=== PATIENT | male | born 1990 | race Caucasian/White ===

== ENCOUNTER 2020-02-27 13:17 | Outpatient (CLI) | payer OTHER, SELFPAY ==
--- NOTE | ~2020-02-27 | XR_ITS ---
XR thoracic spine 3V 02/27/2020 13:38 Indication: Thoracic spine pain Procedure: 4 views of the thoracic spine Comparison: 08/04/2010 Findings: Vertebral body and disc heights are preserved. Pedicles intact. No paraspinal soft tissue a bnormality. Surrounding osseous structures within normal limits. Visualized lung parenchyma is normal . No fracture or traumatic malalignment. There is mild dextrocurvature of the thoracic spine. Impression: 1: No acute abnormality of the thoracic spine. Reviewed, dictated and finalized at location A. Impression: 1: No acute abnormality of the thoracic spine.
== END 2020-02-27 13:18 | disposition home or self-care (01) ==
PROVIDERS: PCP Family Medicine; Visit Provider Family Medicine
DX: M54.6 Pain in thoracic spine (principal)
CPT/HCPCS: 72072

== ENCOUNTER 2020-11-20 12:31 | Emergency (ER) | payer OTHER, SELFPAY ==
--- NOTE | ~2020-11-20 | CT_ITS ---
EXAMINATION: CT abdomen pelvis w con INDICATION: Generalized abdominal pain TECHNIQUE: Computed tomographic images of the abdomen and pelvis were obtained after the administrati on of 100 cc of Omnipaque 350 intravenous contrast. The dose-length product (DLP) was 300.76 mGy-cm. Automated exposure control and iterative reconstruction technique were employed. COMPARISON: 06/27/2018 FINDINGS: The lung bases are clear. The heart size is normal. The liver, spleen, pancreas, gallbladde r, and adrenal glands are normal. The kidneys are unremarkable. A circumaortic left renal vein is not ed. No pathologically enlarged abdominal or pelvic lymph nodes are identified. There is no free intra peritoneal gas or evidence of bowel obstruction. The appendix is normal. IMPRESSION: 1. No CT correlate for the patient's symptoms. Reviewed, dictated and finalized at location A. [employer]
[2020-11-20 12:35] VITALS: BP 119/72; PULSE 87; RESP 20; TEMP 36.3; O2SAT 96
[2020-11-20 12:56] LABS: Add Urine Microscopic? YES; Appearance Urine Clear (Clear); Bacteria Urine Trace /hpf; Bilirubin Urine Negative (Negative); Blood Urine Negative (Negative); Color Urine Amber (Yellow); Glucose Urine UA Negative (Negative); Ketones Urine Negative (Negative); Leukocyte Esterase Ur Negative LEU/UL (Negative); Mucus Urine Heavy /lpf; Nitrate Urine Negative (Negative); Protein Urine 1+ mg/dL (Negative); Squamous Epithelial Cell Urine Occasional /hpf (Few); Urobilinogen Urine Negative mg/dL (<2.0)
[2020-11-20 12:57] LABS: Basophils Percent Auto 0.5 % (0.2-1.2); Eosinophils Absolute Auto 0.1 K/mm3 (0-0.3); Eosinophils Percent Auto 1.9 % (0-4.4); Hematocrit 43.9 % (42.0-52.0); Hemoglobin 15.3 g/dL (14.0-18.0); Immature Granulocyte Absolute 0.02 K/mm3 (0.00-0.031); Immature Granulocyte Percent A 0.3 % (0-0.5); Lymphocytes Absolute Auto 3.01 K/mm3 (0.9-3.2); Lymphocytes Percent Auto 39.9 % (18.3-44.2); Mean Corpuscular HGB Conc 34.9 g/dl (32-36); Mean Corpuscular Hemoglobin 31.2 pg (26-34); Mean Corpuscular Volume 89.6 fl (80-100); Mean Platelet Volume 9.8 fl (7.4-10.4); Monocytes Absolute Auto 0.8 K/mm3 (0.1-0.6); Monocytes Percent Auto 10.1 % (2.6-8.5); Neutrophils Absolute Auto 3.6 K/mm3 (1.3-6.7); Neutrophils Percent Auto 47.3 % (45.5-73.1); Platelet Count Result 290 k/mm3 (150-375); Red Cell Distribution Width 12.1 % (11.5-14.5); White Blood Count 7.5 K/mm3 (4.5-10.0)
[2020-11-20] MEDS: SODIUM CHLORIDE 0.9% IV 1,000 ML 999 ML IV CONT (13:02)
[2020-11-20 13:05] VITALS: BP 98/60; PULSE 72; RESP 20; O2SAT 96
[2020-11-20 13:10] LABS: Alanine Aminotransferase 17 U/L (4-50); Albumin Level 4.3 g/dL (3.5-5.1); Alkaline Phosphatase 52 U/L (38-126); Anion Gap 7 mmol/L (8-16); Aspartate Amino Transferase 34 U/L (17-59); Bilirubin,Total 1.9 mg/dL (0.2-1.3); Blood Urea Nitrogen 19 mg/dL (9-20); Calcium 8.9 mg/dL (8.4-10.2); Carbon Dioxide 32 mmol/L (22-30); Chloride 100 mmol/L (98-107); Estimated CRCL calculation 91 ml/min; Estimated Glomerular Filt Rate > 60; Glucose 94 mg/dL (75-110); Lipase 123 U/L (23-300); Sodium 139 mmol/L (137-145)
--- NOTE | 2020-11-20 13:19 | ED.ABDPAIN ---
HPI - Abdominal Pain General Chief Complaint: Abdominal Pain Stated Complaint: abd pain for several weeks Time Seen by Provider: 11/20/20 12:35 Source: patient and family Mode of arrival: ambulatory Limitations: no limitations History of Present Illness HPI narrative: Patient 30 years old white male been having intermittent abdominal pain for the last 4 to 5 months, got worse over the last few weeks, was seen by his family physician at least 3 times in the past, had a course of Prilosec for 1 month without any response, scheduled to be seen by a swimming coach next week. Recently patient been complaining of intermittent nausea and vomiting. Patient reported the pain is not localized sometimes under the ribs sometimes lower abdomen, no radiation, patient denies any aggravating or relieving factors. Patient noticed more pain after waking up in the morning which lasted for about 2 hours then go away. Patient denies any aggravating factors. Patient denies any fever, shortness of breath, chest pain, COVID-19 infection or exposure to anybody with COVID-19. Related Data Home Medications Medication Instructions Recorded Confirmed omeprazole [Prilosec] 20 mg PO DAILY 11/20/20 11/20/20 Allergies Allergy/AdvReac Type Severity Reaction Status Date / Time No Known Allergies Allergy Verified 11/20/20 12:45 Review of Systems Review of Systems: Narrative: CONSTITUTIONAL: Denies fever, chills, or sweats. EYES: Denies visual changes, redness, or discharge. ENT: Denies rhinorrhea, congestion, sore throat, or otalgia. CARDIOVASCULAR: Denies chest pain, palpitations, or edema. RESPIRATORY: Denies cough or dyspnea. GASTROINTESTINAL: Denies abdominal pain, nausea, vomiting, or diarrhea. GENITOURINARY: Denies dysuria or hematuria. SKIN: Denies rash or itching. MUSCULOSKELETAL: Denies back pain, joint pain, or myalgia. NEUROLOGIC: Denies headache, numbness, or weakness. PSYCHIATRIC: Denies anxiety or depression. [facility] Family History Family History Mother Family history of malignant neoplasm of breast in first degree relative Social History Social History Social History: Smoking status: Never smoker Second hand tobacco smoke exposure: No Alcohol intake: never Substance use: never Substance use type: does not use Gender identity (if verbalized by the patient): Male Exam Narrative: Exam Narrative: General appearance: Well-developed, well-nourished Skin: Normal color Head: Normocephalic, nontraumatic Eyes: Clear conjunctiva ENT: Oropharynx normal, ears normal, nose normal Neck: Supple, nontender Chest and respiratory: Airway patent, no respiratory distress, no accessory muscle use Heart: Regular rate/rhythm Abdomen: Soft, mild tenderness right lower quadrant, no guarding or rebound r, no organomegaly, quiet bowel sounds Vascular: Normal peripheral pulses, normal capillary refill. Musculoskeletal: Normal range of motion, nontender back Neurologic: Alert and oriented ?3, [employer] is normal as tested, no gross motor deficit Course Course Emergency Course: Stable Vital Signs Vital signs: Vital Signs Temperature 36.3 C L 11/20/20 12:35 Pulse Rate 87 11/20/20 12:35 Respiratory Rate 20 11/20/20 12:35 Blood Pressure 119/72 11/20/20 12:35 Pulse Oximetry 96 11/20/20 12:35 Temperature 36.3 C L 11/20/20 12:35 Pulse Rate 72 11/20/20 13:05 Respiratory Rate 20 11/20/20 13:05 Blood Pressure 98/60 L 11/20/20 13:05 Pulse Oximetry 96 11/20/20 13:05 MDM - Abdominal Pain MDM Narrative Medical decision sherly
[2020-11-20 14:45] VITALS: BP 98/58; PULSE 65; RESP 20; O2SAT 97
== END 2020-11-20 14:47 | disposition home or self-care (01) ==
PROVIDERS: Emergency Provider Emergency Medicine; PCP Family Medicine
DX: R10.9 Unspecified abdominal pain (principal)
CPT/HCPCS: 36415; 74177; 80053; 81001; 83690; 85025; 96360; 99284; J7030; Q9967

== ENCOUNTER 2021-12-13 19:45 | Emergency (ER) | payer OTHER, SELFPAY ==
[2021-12-13 19:52] VITALS: BP 120/74; PULSE 76; RESP 16; TEMP 36.4; O2SAT 100
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
[2021-12-13] MEDS: KETOROLAC (*BKC) 60 MG/2 ML VIAL IM (22:36)
[2021-12-13 23:13] VITALS: BP 122/78; PULSE 88; RESP 16; TEMP 36.5; O2SAT 98
== END 2021-12-13 23:08 | disposition home or self-care (01) ==
PROVIDERS: Emergency Provider Emergency Medicine; PCP Family Medicine
DX: T20.19XA Burn of first degree of multiple sites of head, face, and neck, initial encounter (principal); T31.0 Burns involving less than 10% of body surface; X02.8XXA Other exposure to controlled fire in building or structure, initial encounter
CPT/HCPCS: 96372; 99283; J1885

== ENCOUNTER 2025-09-01 07:03 | Emergency (ER) | payer OTHER, SELFPAY ==
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
--- OUTSIDE RECORDS SUMMARY | 2025-09-01 07:06 | XMS_ITS | Clinical Summary ---
Author Organization [facility] Address [address] [place] [address] Phone Care Team Providers Care Occup Therapist Name Role Phone Hector Vera MD Primary Care Provider Allergies No known active allergies Medications HYDROcodone-acet aminophen (NORCO) 5-325 MG Tablet Take 1 Tab by mouth every 4 hours as needed for Pain. 8 Tab 01/04/2018 Active naproxen (NAPROSYN) 500 MG Tablet Take 1 Tab by mouth 2 times daily as needed for Pain. 20 Tab 01/04/2018 Active metoclopramide (REGLAN) 10 MG Tablet Take 1 Tab by mouth 4 times daily as needed for Nausea. 10 Tab 01/04/2018 Active Immunizations Immunization Administration Dates Next Due Covid-19, Mrna, Lnp-s, Pf, 30 Mcg/0.3 Ml Dose (P fizer) 10/11/2020,09/20/2020 Social History Tobacco Use Types Packs/Day Years Used Date Smoking Tobacco: Never Alcohol Use Standard Drinks/Week Comments Yes 0 (1 standard drink = 0.6 oz pur e alcohol) SPARINGLY Sex and Gender Information Value Date Recorded Sex Assigned at Not on file Legal Sex Male 9:36 AM CDT Gender Identity Not on file Sexual Orientation Not on file Last Filed Vital Signs Vital Sign Reading Time Taken Comments Blood Pressure 101/57 01/04/2018 10:45 AM CDT Pulse 60 01/04/2018 10:45 AM CDT Temperature 36.7 C (98.1 F) 01/04/2018 9:40 AM CDT Respiratory Rate - - Oxygen Saturation 97% 01/04/2018 10:45 AM CDT Inhaled Oxygen Concentration - - Weight 68 kg (150 lb) 01/04/2018 9:40 AM CDT Height 180.3 cm (5' 11) 01/04/2018 9:40 AM CDT Body Mass Index 20.92 01/04/2018 9:40 AM CDT Plan of Treatment Health Maintenance Due Date Last Done Comments Hepatitis C Virus (HCV) Screening 1989 TdaP Immunization 1989 Hepatitis B Immunization (1 of 3 - 19+ 3-dose series) 2008 Human Papillomavirus (HPV) Immunization (1 - 3-dose SCDM series) 2016 Influenza Immunization (#1) 2025 SARS-COV-2 Immunization (3 - 2024- season) 2025 10/11/2020, 09/20/2020 Respiratory Syncytial Virus (RSV) Immunization (Adult) (1 - 1-dose 75+ series) 2064 Meningococcal Immunization (ACWY) Aged Out No longer eligible b ased on patient's age to complete this topic Pneumococcal Immunization Combined Aged Out No longer eligible b ased on patient's age to complete this topic Rotavirus Immunization Aged Out No lo nger eligible based on patient's age to complete this topic Insurance [facility] GENER[facility] Care Teams Occup Therapist Relationship Specialty Start Date End Date Hector Vera MD [address] [place] [address] PCP - General Family Medicine 01/04/18
[2025-09-01 07:12] VITALS: BP 141/54; PULSE 97; RESP 16; TEMP 36.4; O2SAT 97
[2025-09-01] MEDS: IBUPROFEN 600 MG TABLET PO (07:39)
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
== END 2025-09-01 08:20 | disposition home or self-care (01) ==
PROVIDERS: Emergency Provider Emergency Medicine; PCP Family Medicine
DX: S60.221A Contusion of right hand, initial encounter (principal); K21.9 Gastro-esophageal reflux disease without esophagitis; Y04.0XXA Assault by unarmed brawl or fight, initial encounter
CPT/HCPCS: 73130; 99283; A9270